=== PATIENT | male | born 1970 | race Caucasian/White ===

== ENCOUNTER → 2017-01-03 | Outpatient (CLI) | payer BC ==
[2016-02-22 11:25] VITALS: BP 119/82
[~2017-01-03] MED LIST: AMOXICILLIN 8751 TAB PO; BUPROPION ER100 M1 PO; BUPROPRION; DEPAKOTE DR500 MG PO; DEPAKOTE500 MG PO; FEXOFENADINE H180 M1 PO; FIORICET1 CAP PO; GABAPENTIN300 MG; GOOD SENSE ASP325 M1 PO; IBUPROFEN200 MG PO; IBUPROFEN800 MG PO; ISOPTIN SR120 MG PO; KETOROLAC10 MG PO; MAXALT10 M2 PO; Muscle Relaxer; OMEPRAZOLE D/R20 MG PO; OMEPRAZOLE40 MG PO; PAIN RELIEVER500 M2 PO; PERCOCET 325 MG1 TA2 PO; PREDNISONE20 M1 PO; PROVENTIL0.09 MG/A1 IH; SERTRALINE50 MG PO; SPIRIVA RE2.5 MCG/Ac IH; ZITHROMAX Z PA250 MG PO
== END ==
LOC: LAB 06:41
DX: Z00.00 Encounter for general adult medical examination without abnormal findings (principal); K21.9 Gastro-esophageal reflux disease without esophagitis; E78.5 Hyperlipidemia, unspecified; M51.36 Other intervertebral disc degeneration, lumbar region; M50.30 Other cervical disc degeneration, unspecified cervical region; Z72.0 Tobacco use; R35.1 Nocturia; N42.89 Other specified disorders of prostate

== ENCOUNTER → 2017-01-06 | Outpatient (CLI) | payer OTHER, BC ==
[~2017-01-06] VITALS: Ht 177.8 cm; Wt 81.8 kg
[2017-01-06 12:07] VITALS: BP 114/78
== END ==
LOC: AMSURD 11:45
DX: Z00.00 Encounter for general adult medical examination without abnormal findings (principal); Z72.0 Tobacco use; R35.1 Nocturia; N42.89 Other specified disorders of prostate; Z01.818 Encounter for other preprocedural examination

== ENCOUNTER → 2017-04-28 | Outpatient (CLI) | payer BC ==
[2017-01-06 12:07] VITALS: BP 114/78
[2017-04-29 00:42] LABS: FOLATE (FOLIC ACID) 4.8 ng/mL (7.0-31.4)
== END ==
LOC: LAB 14:37
PROVIDERS: Psychiatry & Neurology Neurology
DX: R20.0 Anesthesia of skin (principal); R20.2 Paresthesia of skin

== ENCOUNTER 2017-05-20 13:51 | Emergency (ER) | payer BC ==
[2017-05-20] MEDS ORDERED: LYRICA75 MG PO (14:20)
[2017-05-20] MEDS ORDERED: DULOXETINE60 MG PO (14:20)
[2017-05-20] MEDS ORDERED: CYCLOBENZAPRINE10 M1 PO (14:20)
[2017-05-20 15:24] LABS: EOS # 0.3 (0.04-0.40); EOS % 4.3 % (0.0-4.0); HEMATOCRIT 46.1 % (42.0-52.0); HEMOGLOBIN 15.7 g/dL (13.5-18.0); LYMPH# 1.7 (1.50-4.00); MEAN CELL VOLUME 86 fl (78-100); MEAN CORPUSCULAR HEMOGLOBIN 29 pg (27-31); MEAN CORPUSCULAR HGB CONC 34 g/dL (33-37); MONO # 0.5 (0.20-0.80); NEU # 4.1 (1.40-6.50); PLATELET COUNT 137 K/mm3 (130-400); RED BLOOD COUNT 5.34 M/mm3 (4.20-5.60); RED CELL DISTRIBUTION WIDTH 13.8 % (11.5-14.5); WHITE BLOOD COUNT 6.7 K/mm3 (4.8-10.8)
[2017-05-20 15:42] LABS: ALBUMIN 3.8 g/dL (3.5-5.0); CALCIUM 8.8 mg/dL (8.4-10.2); POTASSIUM 4.1 mmol/L (3.6-5.0); TOTAL BILIRUBIN 0.5 mg/dL (0.2-1.3); TOTAL PROTEIN 6.4 g/dL (6.3-8.2)
[2017-05-20] MEDS ORDERED: ZYRTEC10 M3 PO (16:27)
[2017-05-20 16:33] VITALS: BP 132/86
== END 2017-05-20 16:33 | disposition home or self-care (01) ==
LOC: ED 13:51
PROVIDERS: Physician Assistant
DX: R29.898 Other symptoms and signs involving the musculoskeletal system (principal); H92.02 Otalgia, left ear; J30.2 Other seasonal allergic rhinitis; F17.200 Nicotine dependence, unspecified, uncomplicated; I25.2 Old myocardial infarction; J44.9 Chronic obstructive pulmonary disease, unspecified; K21.9 Gastro-esophageal reflux disease without esophagitis; G43.909 Migraine, unspecified, not intractable, without status migrainosus

== ENCOUNTER → 2017-05-25 | Outpatient (CLI) | payer BC ==
[~2017-05-25] VITALS: Ht 177.8 cm; Wt 81.8 kg
[~2017-05-25] MED LIST changes: +CYCLOBENZAPRINE10 M1 PO; +DULOXETINE60 MG PO; +LYRICA75 MG PO; +ZYRTEC10 M3 PO
[2017-05-25 11:45] VITALS: BP 124/79
== END ==
LOC: AMSURD 11:39
DX: R00.0 Tachycardia, unspecified (principal)

== ENCOUNTER 2017-06-02 11:30 | Outpatient (RCR) | payer BC ==
[2017-01-06 12:07] VITALS: BP 114/78
== END 2017-06-02 12:00 | disposition home or self-care (01) ==
LOC: PT 11:30
DX: Z98.1 Arthrodesis status (principal); M62.838 Other muscle spasm; M54.42 Lumbago with sciatica, left side; M54.41 Lumbago with sciatica, right side

== ENCOUNTER → 2017-07-04 | Outpatient (CLI) | payer BC ==
[~2017-07-04] VITALS: Ht 177.8 cm; Wt 81.8 kg
[~2017-07-04] MED LIST changes: +ACETAMINOPHEN-H1 TA2 PO
[2017-07-04 15:52] VITALS: BP 130/88
== END ==
LOC: AMSURD 15:29
DX: I10 Essential (primary) hypertension (principal)

== ENCOUNTER → 2017-07-05 | Outpatient (CLI) | payer BC ==
[2017-07-04 15:52] VITALS: BP 130/88
== END ==
LOC: RAD 09:26
DX: R10.11 Right upper quadrant pain (principal); I10 Essential (primary) hypertension; K76.89 Other specified diseases of liver

== ENCOUNTER 2017-07-18 13:11 | Emergency (ER) | payer BC ==
[2017-07-18] MEDS ORDERED: OMEPRAZOLE D/R20 MG PO (13:35)
[2017-07-18] MEDS ORDERED: METOPROLOL SUCC25 M1 PO (13:35)
[2017-07-18] MEDS ORDERED: NEURONTIN300 MG/CAP (13:35)
[2017-07-18] MEDS ORDERED: KETOROLAC TROME10 MG PO (13:35)
[2017-07-18] MEDS ORDERED: DULOXETINE60 MG PO (13:36)
[2017-07-18] MEDS ORDERED: CYCLOBENZAPRINE10 M1 PO (13:37)
[2017-07-18 14:02] LABS: EOS # 0.3 (0.04-0.40); EOS % 2.5 % (0.0-4.0); HEMATOCRIT 49.9 % (42.0-52.0); HEMOGLOBIN 16.7 g/dL (13.5-18.0); MEAN CELL VOLUME 86 fl (78-100); MEAN CORPUSCULAR HEMOGLOBIN 29 pg (27-31); MEAN CORPUSCULAR HGB CONC 34 g/dL (33-37); MONO # 0.8 (0.20-0.80); NEU # 7.1 (1.40-6.50); PLATELET COUNT 173 K/mm3 (130-400); RED BLOOD COUNT 5.78 M/mm3 (4.20-5.60); RED CELL DISTRIBUTION WIDTH 14.1 % (11.5-14.5); WHITE BLOOD COUNT 10.3 K/mm3 (4.8-10.8)
[2017-07-18 14:15] LABS: ALBUMIN 4.3 g/dL (3.5-5.0); BUN/CREATININE RATIO 9.9 (6.0-26.0); CALCIUM 8.9 mg/dL (8.4-10.2); POTASSIUM 4.3 mmol/L (3.6-5.0); TOTAL BILIRUBIN 0.4 mg/dL (0.2-1.3); TOTAL PROTEIN 7.4 g/dL (6.3-8.2)
[2017-07-18 14:21] LABS: CKMB ISOENZYME 0.8 ng/mL (0.6-3.5)
[2017-07-18 14:22] LABS: MEAN PLATELET VOLUME 12.3 fl (7.4-10.4)
[2017-07-18 14:26] LABS: TROPONIN-I < 0.03 ng/mL (0.00-0.06)
[2017-07-18] MEDS ORDERED: TUSSIONEX PENN115 ML PO (15:51)
[2017-07-18] MEDS ORDERED: NORCO 325 MG-51 TA1 PO (15:51)
[2017-07-18 15:55] VITALS: BP 112/80
== END 2017-07-18 16:05 | disposition home or self-care (01) ==
LOC: ED 13:11
PROVIDERS: Nurse Practitioner Primary Care
DX: M94.0 Chondrocostal junction syndrome [Tietze] (principal); F17.200 Nicotine dependence, unspecified, uncomplicated; J06.9 Acute upper respiratory infection, unspecified; I10 Essential (primary) hypertension; I25.2 Old myocardial infarction; Z86.73 Personal history of transient ischemic attack (TIA), and cerebral infarction without residual deficits; Z88.5 Allergy status to narcotic agent; Z91.018 Allergy to other foods
CPT/HCPCS: J1885; J2270; J2405; Q9967

== ENCOUNTER 2017-07-26 15:54 | Emergency (ER) | payer BC ==
[~2017-07-26] VITALS: Ht 180.3 cm; Wt 82.3 kg
[~2017-07-26 15:54] MED LIST changes: +KETOROLAC TROME10 MG PO; +METOPROLOL SUCC25 M1 PO; +NEURONTIN300 MG/CAP; +NORCO 325 MG-51 TA1 PO; +TUSSIONEX PENN115 ML PO
[2017-07-26 17:38] LABS: BUN/CREATININE RATIO 5.9 (6.0-26.0); CALCIUM 8.9 mg/dL (8.4-10.2); POTASSIUM 4.2 mmol/L (3.6-5.0); TOTAL BILIRUBIN 0.3 mg/dL (0.2-1.3); TOTAL PROTEIN 6.9 g/dL (6.3-8.2)
[2017-07-26 17:43] LABS: EOS # 0.2 (0.04-0.40); HEMATOCRIT 46.4 % (42.0-52.0); HEMOGLOBIN 15.4 g/dL (13.5-18.0); LYMPH# 2.1 (1.50-4.00); MEAN CELL VOLUME 86 fl (78-100); MEAN CORPUSCULAR HEMOGLOBIN 28 pg (27-31); MEAN CORPUSCULAR HGB CONC 33 g/dL (33-37); MEAN PLATELET VOLUME 12.3 fl (7.4-10.4); MONO # 0.4 (0.20-0.80); NEU # 5.1 (1.40-6.50); PLATELET COUNT 164 K/mm3 (130-400); RED BLOOD COUNT 5.43 M/mm3 (4.20-5.60); WHITE BLOOD COUNT 7.9 K/mm3 (4.8-10.8)
[2017-07-26 17:55] LABS: CKMB ISOENZYME 0.9 ng/mL (0.6-3.5)
[2017-07-26 18:59] LABS: TROPONIN-I < 0.03 ng/mL (0.00-0.06)
[2017-07-26 21:27] VITALS: BP 130/94
== END 2017-07-26 21:27 | disposition home or self-care (01) ==
LOC: ED 15:54
PROVIDERS: Nurse Practitioner Family
DX: R07.89 Other chest pain (principal); R42 Dizziness and giddiness; R51 Headache; M54.2 Cervicalgia; Z91.81 History of falling; Z98.1 Arthrodesis status; F17.210 Nicotine dependence, cigarettes, uncomplicated
CPT/HCPCS: J1885; J7030

== ENCOUNTER → 2017-09-01 | Outpatient (REF) | LOC: EDSTATUS 07:11 → LAB 18:02 | DX: R55 Syncope and collapse (principal); R53.83 Other fatigue; Z88.5 Allergy status to narcotic agent ==

== ENCOUNTER 2017-09-30 13:00 | Outpatient (RCR) | payer BC | END 2017-09-30 13:30 | disposition home or self-care (01) | LOC: PT 13:00 | DX: G56.23 Lesion of ulnar nerve, bilateral upper limbs (principal); G56.02 Carpal tunnel syndrome, left upper limb; Y28.9 Contact with unspecified sharp object, undetermined intent ==

== ENCOUNTER 2017-12-12 17:08 | Emergency (ER) | payer BC ==
[~2017-12-12] VITALS: Wt 93.6 kg
[2017-12-12 17:32] LABS: EOS # 0.2 (0.04-0.40); EOS % 3.2 % (0.0-4.0); HEMATOCRIT 44.5 % (42.0-52.0); HEMOGLOBIN 14.8 g/dL (13.5-18.0); LYMPH# 1.9 (1.50-4.00); MEAN CELL VOLUME 88 fl (78-100); MEAN CORPUSCULAR HEMOGLOBIN 29 pg (27-31); MEAN CORPUSCULAR HGB CONC 33 g/dL (33-37); MONO # 0.6 (0.20-0.80); NEU # 4.5 (1.40-6.50); PLATELET COUNT 146 K/mm3 (130-400); RED BLOOD COUNT 5.08 M/mm3 (4.20-5.60); RED CELL DISTRIBUTION WIDTH 13.7 % (11.5-14.5); WHITE BLOOD COUNT 7.3 K/mm3 (4.8-10.8)
[2017-12-12] MEDS ORDERED: HYGROTON 2525 MG/TAB PO (17:41)
[2017-12-12] MEDS ORDERED: QUETIAPINE FUM300 M1 PO (17:42)
[2017-12-12] MEDS ORDERED: DEPAKOTE ER 50500 MG PO (17:43)
[2017-12-12 17:45] LABS: ALBUMIN 3.8 g/dL (3.5-5.0); BUN/CREATININE RATIO 13.4 (6.0-26.0); CALCIUM 8.7 mg/dL (8.4-10.2); POTASSIUM 3.4 mmol/L (3.6-5.0); TOTAL BILIRUBIN 0.4 mg/dL (0.2-1.3); TOTAL PROTEIN 6.9 g/dL (6.3-8.2)
[2017-12-12 17:52] LABS: CKMB ISOENZYME 0.9 ng/mL (0.6-3.5)
[2017-12-12 17:57] LABS: TROPONIN-I < 0.03 ng/mL (0.00-0.06)
[2017-12-12 18:07] LABS: D-DIMER 0.23 mg/L FEU (0.15-0.50)
[2017-12-12 20:06] LABS: CKMB ISOENZYME 0.9 ng/mL (0.6-3.5)
[2017-12-12 20:10] LABS: TROPONIN-I < 0.03 ng/mL (0.00-0.06)
[2017-12-12 20:42] VITALS: BP 116/80
== END 2017-12-12 20:42 | disposition home or self-care (01) ==
LOC: ED 17:08
PROVIDERS: Nurse Practitioner Primary Care
DX: I25.118 Atherosclerotic heart disease of native coronary artery with other forms of angina pectoris (principal); I10 Essential (primary) hypertension; E78.5 Hyperlipidemia, unspecified; K21.9 Gastro-esophageal reflux disease without esophagitis; I25.2 Old myocardial infarction; Z86.73 Personal history of transient ischemic attack (TIA), and cerebral infarction without residual deficits; K80.20 Calculus of gallbladder without cholecystitis without obstruction; Z79.899 Other long term (current) drug therapy; F17.200 Nicotine dependence, unspecified, uncomplicated
CPT/HCPCS: J2270

== ENCOUNTER → 2018-02-02 | Outpatient (CLI) | payer BC ==
[~2018-02-02] MED LIST changes: +DEPAKOTE ER 50500 MG PO; +HYGROTON 2525 MG/TAB PO; +QUETIAPINE FUM300 M1 PO
== END ==
LOC: RAD 12:36
DX: M25.561 Pain in right knee (principal)

== ENCOUNTER 2018-03-16 09:30 | Outpatient (RCR) | payer BC | END 2018-03-16 10:00 | disposition home or self-care (01) | LOC: PT 09:30 | DX: M25.561 Pain in right knee (principal); R22.41 Localized swelling, mass and lump, right lower limb ==

== ENCOUNTER → 2018-03-17 | Outpatient (CLI) | payer BC ==
[~2018-03-17] MED LIST changes: +ATORVASTATIN CA20 MG PO; +CYMBALTA30 M1 PO; +HYDROCHLOROTH12.5 M2 PO; +ISOSORBIDE MONO60 M2 PO; +KAPSPARGO SPRI100 MG PO; +POTASSIUM CHLO20 ME4 PO; +XARELTO20 MG PO; +[UNRECOGNIZED DRUG - OTHER] NS
== END ==
LOC: RAD 11:20
DX: R22.1 Localized swelling, mass and lump, neck (principal); Z98.890 Other specified postprocedural states
CPT/HCPCS: Q9967

== ENCOUNTER 2018-03-18 11:08 | Emergency (ER) | payer BC ==
[~2018-03-18] VITALS: Ht 177.8 cm; Wt 92.7 kg
[~2018-03-18 11:08] MED LIST changes: -ATORVASTATIN CA20 MG PO; -CYMBALTA30 M1 PO; -HYDROCHLOROTH12.5 M2 PO; -ISOSORBIDE MONO60 M2 PO; -KAPSPARGO SPRI100 MG PO; -POTASSIUM CHLO20 ME4 PO; -XARELTO20 MG PO; -[UNRECOGNIZED DRUG - OTHER] NS
[2018-03-18] MEDS ORDERED: XARELTO20 MG PO (11:18)
[2018-03-18 12:05] LABS: EOS # 0.2 (0.04-0.40); EOS % 3.3 % (0.0-4.0); HEMATOCRIT 40.7 % (42.0-52.0); HEMOGLOBIN 13.5 g/dL (13.5-18.0); LYMPH# 1.9 (1.50-4.00); MEAN CELL VOLUME 88 fl (78-100); MEAN CORPUSCULAR HEMOGLOBIN 29 pg (27-31); MEAN CORPUSCULAR HGB CONC 33 g/dL (33-37); MEAN PLATELET VOLUME 11.7 fl (7.4-10.4); MONO # 0.5 (0.20-0.80); NEU # 3.7 (1.40-6.50); PLATELET COUNT 124 K/mm3 (130-400); RED BLOOD COUNT 4.62 M/mm3 (4.20-5.60); RED CELL DISTRIBUTION WIDTH 13.8 % (11.5-14.5); WHITE BLOOD COUNT 6.3 K/mm3 (4.8-10.8)
[2018-03-18 12:20] LABS: ALBUMIN 3.7 g/dL (3.5-5.0); CALCIUM 8.7 mg/dL (8.4-10.2); TOTAL BILIRUBIN 0.7 mg/dL (0.2-1.3); TOTAL PROTEIN 6.3 g/dL (6.3-8.2)
[2018-03-18 12:27] LABS: PARTIAL THROMBOPLASTIN TIME 29.3 SECONDS (21.0-32.0); PROTHROMBIN TIME 11.2 SECONDS (9.0-12.0)
[2018-03-18] MEDS ORDERED: NEURONTIN300 MG/CAP (13:02)
[2018-03-18] MEDS ORDERED: ISOSORBIDE MONO60 M2 PO (13:03)
[2018-03-18] MEDS ORDERED: HYDROCHLOROTH12.5 M2 PO (13:03)
[2018-03-18] MEDS ORDERED: KAPSPARGO SPRI100 MG PO (13:04)
[2018-03-18] MEDS ORDERED: POTASSIUM CHLO20 ME4 PO (13:05)
[2018-03-18] MEDS ORDERED: CYMBALTA30 M1 PO (13:06)
[2018-03-18] MEDS ORDERED: ATORVASTATIN CA20 MG PO (13:06)
[2018-03-18] MEDS ORDERED: [UNRECOGNIZED DRUG - OTHER] NS (13:08)
[2018-03-18 15:32] VITALS: BP 111/74
== END 2018-03-18 15:32 | disposition home or self-care (01) ==
LOC: ED 11:08
PROVIDERS: Family Medicine
DX: R51 Headache (principal); R07.9 Chest pain, unspecified; R29.898 Other symptoms and signs involving the musculoskeletal system; M50.30 Other cervical disc degeneration, unspecified cervical region; J43.9 Emphysema, unspecified; F17.210 Nicotine dependence, cigarettes, uncomplicated; Z79.01 Long term (current) use of anticoagulants; I48.91 Unspecified atrial fibrillation; I25.10 Atherosclerotic heart disease of native coronary artery without angina pectoris; I50.9 Heart failure, unspecified; G40.909 Epilepsy, unspecified, not intractable, without status epilepticus; R40.2412 Glasgow coma scale score 13-15, at arrival to emergency department; Z79.899 Other long term (current) drug therapy
CPT/HCPCS: J0595

== ENCOUNTER → 2018-03-20 | Outpatient (CLI) | payer BC ==
[2018-03-18 15:32] VITALS: BP 111/74
[~2018-03-20] MED LIST changes: +ATORVASTATIN CA20 MG PO; +CYMBALTA30 M1 PO; +HYDROCHLOROTH12.5 M2 PO; +ISOSORBIDE MONO60 M2 PO; +KAPSPARGO SPRI100 MG PO; +POTASSIUM CHLO20 ME4 PO; +XARELTO20 MG PO; +[UNRECOGNIZED DRUG - OTHER] NS
== END ==
LOC: RAD 13:16
DX: M17.11 Unilateral primary osteoarthritis, right knee (principal); M25.461 Effusion, right knee

== ENCOUNTER 2018-03-24 14:22 | Emergency (ER) | payer BC ==
[~2018-03-24] VITALS: Ht 177.8 cm; Wt 94.5 kg
[2018-03-24 15:43] LABS: EOS # 0.2 (0.04-0.40); EOS % 3.1 % (0.0-4.0); HEMOGLOBIN 13.3 g/dL (13.5-18.0); LYMPH# 1.5 (1.50-4.00); MEAN CELL VOLUME 88 fl (78-100); MEAN CORPUSCULAR HEMOGLOBIN 29 pg (27-31); MEAN CORPUSCULAR HGB CONC 32 g/dL (33-37); MEAN PLATELET VOLUME 11.8 fl (7.4-10.4); MONO # 0.4 (0.20-0.80); NEU # 3.1 (1.40-6.50); PLATELET COUNT 158 K/mm3 (130-400); RED BLOOD COUNT 4.65 M/mm3 (4.20-5.60); RED CELL DISTRIBUTION WIDTH 14.1 % (11.5-14.5); WHITE BLOOD COUNT 5.2 K/mm3 (4.8-10.8)
[2018-03-24 15:54] LABS: ALBUMIN 3.6 g/dL (3.5-5.0); CALCIUM 8.6 mg/dL (8.4-10.2); POTASSIUM 4.1 mmol/L (3.6-5.0); TOTAL BILIRUBIN 0.6 mg/dL (0.2-1.3); TOTAL PROTEIN 6.1 g/dL (6.3-8.2)
[2018-03-24 17:01] VITALS: BP 112/77
== END 2018-03-24 17:03 | disposition home or self-care (01) ==
LOC: ED 14:22
PROVIDERS: Nurse Practitioner Primary Care
DX: G43.909 Migraine, unspecified, not intractable, without status migrainosus (principal); I48.91 Unspecified atrial fibrillation; I47.1 Supraventricular tachycardia; F17.210 Nicotine dependence, cigarettes, uncomplicated; Z79.01 Long term (current) use of anticoagulants; Z79.899 Other long term (current) drug therapy

== ENCOUNTER 2018-05-07 12:31 | Emergency (ER) | payer BC ==
[~2018-05-07] VITALS: Ht 177.8 cm; Wt 99.1 kg
[2018-05-07] MEDS ORDERED: TRAMADOL 50 MG TAB PO (12:41)
[2018-05-07] MEDS ORDERED: PROCHLORPERAZIN10 M2 (12:42)
[2018-05-07] MEDS ORDERED: ONDANSETRON HYDR4 MG PO (12:43)
[2018-05-07] MEDS ORDERED: METOPROLOL SUC100 M1 PO (12:44)
[2018-05-07] MEDS ORDERED: ACETAMINOPHEN-O1 TAB PO (12:44)
[2018-05-07 13:13] LABS: EOS # 0.2 (0.04-0.40); HEMATOCRIT 38.6 % (42.0-52.0); LYMPH# 1.5 (1.50-4.00); MEAN CELL VOLUME 87 fl (78-100); MEAN CORPUSCULAR HEMOGLOBIN 29 pg (27-31); MEAN CORPUSCULAR HGB CONC 34 g/dL (33-37); MEAN PLATELET VOLUME 10.9 fl (7.4-10.4); MONO # 0.5 (0.20-0.80); NEU # 2.5 (1.40-6.50); PLATELET COUNT 151 K/mm3 (130-400); RED BLOOD COUNT 4.42 M/mm3 (4.20-5.60); RED CELL DISTRIBUTION WIDTH 13.9 % (11.5-14.5); WHITE BLOOD COUNT 4.7 K/mm3 (4.8-10.8)
[2018-05-07 13:27] VITALS: BP 105/77
[2018-05-07 14:13] LABS: ERYTHROCYTE SEDIMENTATION RATE 7 mm/hr (0-15)
== END 2018-05-07 13:27 | disposition home or self-care (01) ==
LOC: ED 12:31
PROVIDERS: Family Medicine
DX: M25.571 Pain in right ankle and joints of right foot (principal); M96.89 Other intraoperative and postprocedural complications and disorders of the musculoskeletal system; S90.01XA Contusion of right ankle, initial encounter; R60.0 Localized edema; Z79.01 Long term (current) use of anticoagulants; I25.10 Atherosclerotic heart disease of native coronary artery without angina pectoris; I25.2 Old myocardial infarction; J44.9 Chronic obstructive pulmonary disease, unspecified; F17.200 Nicotine dependence, unspecified, uncomplicated; L53.9 Erythematous condition, unspecified; Z79.899 Other long term (current) drug therapy

== ENCOUNTER → 2018-05-17 | Outpatient (CLI) | payer BC ==
[2018-05-07 13:27] VITALS: BP 105/77
[~2018-05-17] MED LIST changes: +ACETAMINOPHEN-O1 TAB PO; +METOPROLOL SUC100 M1 PO; +ONDANSETRON HYDR4 MG PO; +PROCHLORPERAZIN10 M2; +TRAMADOL 50 MG TAB PO
== END ==
LOC: RAD 15:58
DX: R10.9 Unspecified abdominal pain (principal); K59.00 Constipation, unspecified; Z98.890 Other specified postprocedural states; Z96.7 Presence of other bone and tendon implants

== ENCOUNTER 2018-06-07 10:30 | Outpatient (RCR) | payer BC | END 2018-07-30 | disposition home or self-care (01) | LOC: PT | DX: Z47.89 Encounter for other orthopedic aftercare (principal) ==

== ENCOUNTER → 2018-08-17 | Outpatient (CLI) | payer BC | LOC: RAD 09:11 | DX: R29.898 Other symptoms and signs involving the musculoskeletal system (principal) | CPT/HCPCS: Q9967 ==

== ENCOUNTER → 2018-09-04 | Outpatient (CLI) | payer BC | LOC: RAD 12:54 | DX: R29.898 Other symptoms and signs involving the musculoskeletal system (principal); R20.2 Paresthesia of skin; Z98.890 Other specified postprocedural states | CPT/HCPCS: A9585 ==

== ENCOUNTER → 2018-09-13 | Outpatient (CLI) | payer BC | LOC: RAD 09:51 | DX: M51.36 Other intervertebral disc degeneration, lumbar region (principal) ==

== ENCOUNTER → 2018-09-18 | Outpatient (CLI) | payer BC | LOC: RAD 12:00 | DX: M48.061 Spinal stenosis, lumbar region without neurogenic claudication (principal); M51.36 Other intervertebral disc degeneration, lumbar region; M47.817 Spondylosis without myelopathy or radiculopathy, lumbosacral region ==

== ENCOUNTER → 2018-10-16 | Outpatient (CLI) | payer BC | LOC: LAB 12:50 | DX: G47.9 Sleep disorder, unspecified (principal) ==

== ENCOUNTER → 2018-11-15 | Outpatient (CLI) | payer BC ==
[2018-11-15 10:52] LABS: ALBUMIN 4.1 g/dL (3.5-5.0); DIRECT BILIRUBIN 0.2 mg/dL (0.0-0.5); TOTAL BILIRUBIN 0.4 mg/dL (0.2-1.2); TOTAL PROTEIN 7.1 g/dL (6.4-8.3)
== END ==
LOC: LAB 10:01
PROVIDERS: Family Medicine
DX: K21.9 Gastro-esophageal reflux disease without esophagitis (principal); M51.36 Other intervertebral disc degeneration, lumbar region; I10 Essential (primary) hypertension; Z72.0 Tobacco use

== ENCOUNTER → 2018-11-16 | Outpatient (CLI) | payer BC | LOC: RAD 07:30 | DX: M51.36 Other intervertebral disc degeneration, lumbar region (principal); I10 Essential (primary) hypertension; K21.9 Gastro-esophageal reflux disease without esophagitis; Z72.0 Tobacco use ==

== ENCOUNTER 2018-11-30 11:00 | Outpatient (RCR) | payer BC | END 2018-11-30 11:30 | LOC: PT 11:00 | DX: M51.36 Other intervertebral disc degeneration, lumbar region (principal) ==

== ENCOUNTER → 2019-01-26 | Outpatient (CLI) | payer BC | LOC: RAD 08:46 | DX: K21.9 Gastro-esophageal reflux disease without esophagitis (principal); K59.04 Chronic idiopathic constipation ==

== ENCOUNTER 2019-02-01 16:34 | Emergency (ER) | payer BC ==
[~2019-02-01] VITALS: Ht 177.8 cm; Wt 90.0 kg
[~2019-02-01 16:34] MED LIST changes: -ACID REDUCER 1150 MG PO; -LINZESS145 MCG PO; -MELOXICAM15 MG PO; -PANTOPRAZOLE SO20 M1 PO; -WELLBUTRIN SR100 M3 PO
[2019-02-01] MEDS ORDERED: ACID REDUCER 1150 MG PO (16:44)
[2019-02-01] MEDS ORDERED: PANTOPRAZOLE SO20 M1 PO (16:45)
[2019-02-01] MEDS ORDERED: MELOXICAM15 MG PO (16:45)
[2019-02-01] MEDS ORDERED: WELLBUTRIN SR100 M3 PO (16:45)
[2019-02-01] MEDS ORDERED: LINZESS145 MCG PO (16:45)
[2019-02-01 17:09] LABS: ALBUMIN 4.2 g/dL (3.5-5.0)
[2019-02-01 17:10] LABS: POTASSIUM 3.7 mmol/L (3.5-5.1)
[2019-02-01 17:11] LABS: CALCIUM 9.1 mg/dL (8.3-10.5)
[2019-02-01 17:12] LABS: TOTAL PROTEIN 7.5 g/dL (6.4-8.3)
[2019-02-01 17:19] LABS: EOS # 0.2 (0.04-0.40); EOS % 2.2 % (0.0-4.0); HEMOGLOBIN 15.8 g/dL (13.5-18.0); LYMPH# 2.3 (1.50-4.00); MEAN CELL VOLUME 83 fl (78-100); MEAN CORPUSCULAR HEMOGLOBIN 28 pg (27-31); MEAN CORPUSCULAR HGB CONC 34 g/dL (33-37); MONO # 0.5 (0.20-0.80); NEU # 5.4 (1.40-6.50); PLATELET COUNT 146 K/mm3 (130-400); RED BLOOD COUNT 5.66 M/mm3 (4.20-5.60); RED CELL DISTRIBUTION WIDTH 14.9 % (11.5-14.5); WHITE BLOOD COUNT 8.3 K/mm3 (4.8-10.8)
[2019-02-01 17:25] LABS: TROPONIN-I 0.03 ng/mL (<0.030)
[2019-02-01 17:28] LABS: MEAN PLATELET VOLUME 12.9 fl (7.4-10.4)
[2019-02-01 17:42] LABS: TOTAL BILIRUBIN 0.6 mg/dL (0.2-1.2)
[2019-02-01 19:28] VITALS: BP 114/70
== END 2019-02-01 19:28 | disposition home or self-care (01) ==
LOC: ED 16:34
PROVIDERS: Nurse Practitioner Family
DX: R07.89 Other chest pain (principal); I10 Essential (primary) hypertension; K21.9 Gastro-esophageal reflux disease without esophagitis; G43.909 Migraine, unspecified, not intractable, without status migrainosus; F32.9 Major depressive disorder, single episode, unspecified; F17.210 Nicotine dependence, cigarettes, uncomplicated; Z95.9 Presence of cardiac and vascular implant and graft, unspecified; Z98.890 Other specified postprocedural states; Z87.442 Personal history of urinary calculi
CPT/HCPCS: J2405; J7030

== ENCOUNTER → 2019-02-01 | Outpatient (CLI) | payer BC ==
[~2019-02-01] VITALS: Ht 177.8 cm; Wt 90.9 kg
[~2019-02-01] MED LIST changes: +ACID REDUCER 1150 MG PO; +LINZESS145 MCG PO; +MELOXICAM15 MG PO; +PANTOPRAZOLE SO20 M1 PO; +WELLBUTRIN SR100 M3 PO
[2019-02-01 18:15] VITALS: BP 115/82
== END ==
LOC: AMSURD 14:54
DX: I48.91 Unspecified atrial fibrillation (principal); R53.83 Other fatigue; R11.2 Nausea with vomiting, unspecified; R10.13 Epigastric pain

== ENCOUNTER → 2019-03-29 | Outpatient (CLI) | payer BC ==
[~2019-03-29] MED LIST changes: +ACID REDUCER 1150 MG PO; +LINZESS145 MCG PO; +MELOXICAM15 MG PO; +PANTOPRAZOLE SO20 M1 PO; +WELLBUTRIN SR100 M3 PO
== END ==
LOC: RAD 11:25
DX: K76.89 Other specified diseases of liver (principal); E11.9 Type 2 diabetes mellitus without complications; K21.9 Gastro-esophageal reflux disease without esophagitis; K92.1 Melena
CPT/HCPCS: Q9967

== ENCOUNTER 2019-04-03 11:30 | Outpatient (RCR) | payer BC | END 2019-04-03 12:00 | disposition still patient (30) | LOC: PT 11:30 | DX: M54.12 Radiculopathy, cervical region (principal) ==

== ENCOUNTER → 2019-04-16 | Day surgery (SDC) | payer BC | LOC: MSO 07:48 | DX: Z86.010 Personal history of colon polyps (principal); K29.80 Duodenitis without bleeding; D12.0 Benign neoplasm of cecum; D12.4 Benign neoplasm of descending colon; Z87.11 Personal history of peptic ulcer disease; I51.9 Heart disease, unspecified; Z79.01 Long term (current) use of anticoagulants; Z88.9 Allergy status to unspecified drugs, medicaments and biological substances; Z79.899 Other long term (current) drug therapy; E78.5 Hyperlipidemia, unspecified; G43.909 Migraine, unspecified, not intractable, without status migrainosus; K21.9 Gastro-esophageal reflux disease without esophagitis; J44.9 Chronic obstructive pulmonary disease, unspecified; I48.91 Unspecified atrial fibrillation; R09.02 Hypoxemia; M54.12 Radiculopathy, cervical region; R06.83 Snoring; R60.9 Edema, unspecified; F51.02 Adjustment insomnia; Z80.8 Family history of malignant neoplasm of other organs or systems; Z83.3 Family history of diabetes mellitus; Z82.49 Family history of ischemic heart disease and other diseases of the circulatory system; F17.210 Nicotine dependence, cigarettes, uncomplicated; E11.9 Type 2 diabetes mellitus without complications; M19.90 Unspecified osteoarthritis, unspecified site; K59.04 Chronic idiopathic constipation; M51.36 Other intervertebral disc degeneration, lumbar region; Z98.52 Vasectomy status | CPT/HCPCS: 00813; J2704; J3010; J7030 ==

== ENCOUNTER → 2019-05-08 | Outpatient (CLI) | payer BC ==
[~2019-05-08] MED LIST changes: +ALLEGRA ALLERG180 MG PO; +AMLODIPINE BES2.5 MG PO; +COLACE100 M1 PO; +HCTZ 25MG25 MG PO; -HYDROCHLOROTH12.5 M2 PO; +IPRATROPIUM BROM3 M1 IH; +MELATIN 3 MG-11 TAB PO; -METOPROLOL SUC100 M1 PO; +METOPROLOL SUCC50 M1 PO; +NITROSTAT0.4 M1 SL; +PROAIR HFA0.09 MG/AC IH
== END ==
LOC: RAD 08:07
DX: M25.561 Pain in right knee (principal)

== ENCOUNTER 2019-05-09 17:54 | Emergency (ER) | payer BC ==
[~2019-05-09] VITALS: Wt 90.6 kg
[~2019-05-09 17:54] MED LIST changes: -ALLEGRA ALLERG180 MG PO; -AMLODIPINE BES2.5 MG PO; -COLACE100 M1 PO; -IPRATROPIUM BROM3 M1 IH; -MELATIN 3 MG-11 TAB PO; -NITROSTAT0.4 M1 SL; -PROAIR HFA0.09 MG/AC IH
[2019-05-09 18:41] LABS: HEMATOCRIT 46.6 % (42.0-52.0); HEMOGLOBIN 15.5 g/dL (13.5-18.0); MEAN CELL VOLUME 86 fl (78-100); MEAN CORPUSCULAR HEMOGLOBIN 29 pg (27-31); MEAN CORPUSCULAR HGB CONC 33 g/dL (33-37); PLATELET COUNT 167 K/mm3 (130-400); RED BLOOD COUNT 5.42 M/mm3 (4.20-5.60); RED CELL DISTRIBUTION WIDTH 13.8 % (11.5-14.5); WHITE BLOOD COUNT 8.1 K/mm3 (4.8-10.8)
[2019-05-09 18:42] LABS: MEAN PLATELET VOLUME 12.4 fl (7.4-10.4)
[2019-05-09 18:49] LABS: ALBUMIN 4.2 g/dL (3.5-5.0); POTASSIUM 4.1 mmol/L (3.5-5.1)
[2019-05-09 18:50] LABS: CALCIUM 9.1 mg/dL (8.3-10.5)
[2019-05-09 18:53] LABS: TOTAL BILIRUBIN 0.6 mg/dL (0.2-1.2)
[2019-05-09 18:56] LABS: BAND 3 % (0-10); LYMPHOCYTE 4 % (20-51); NEUTROPHILS 91 % (42-75)
[2019-05-09] MEDS ORDERED: AMLODIPINE BES2.5 MG PO (20:40)
[2019-05-09 20:41] LABS: URINE APPEARANCE CLEAR; URINE COLOR YELLOW
[2019-05-09 20:42] LABS: PH-URINE 6.5 (5.0 - 8.0); URINE BILIRUBIN NEGATIVE (NEGATIVE); URINE BLOOD TRACE (NEGATIVE); URINE GLUCOSE NEGATIVE (NEGATIVE); URINE KETONE NEGATIVE (NEGATIVE); URINE LEUKOCYTE ESTERASE NEGATIVE (NEGATIVE); URINE NITRATE NEGATIVE (NEGATIVE); URINE PROTEIN(semi-quant) TRACE mg/dL (NEGATIVE); URINE UROBILINOGEN NORMAL (NORMAL)
[2019-05-09] MEDS ORDERED: IPRATROPIUM BROM3 M1 IH (20:43)
[2019-05-09] MEDS ORDERED: ALLEGRA ALLERG180 MG PO (20:43)
[2019-05-09] MEDS ORDERED: MELATIN 3 MG-11 TAB PO (20:44)
[2019-05-09] MEDS ORDERED: PROAIR HFA0.09 MG/AC IH (20:44)
[2019-05-09] MEDS ORDERED: COLACE100 M1 PO (20:45)
[2019-05-09] MEDS ORDERED: NITROSTAT0.4 M1 SL (20:45)
[2019-05-09 21:26] VITALS: BP 115/77
== END 2019-05-09 21:26 | disposition home or self-care (01) ==
LOC: ED 17:54
PROVIDERS: Physician Assistant
DX: E11.65 Type 2 diabetes mellitus with hyperglycemia (principal); I48.91 Unspecified atrial fibrillation; F17.210 Nicotine dependence, cigarettes, uncomplicated; Z86.73 Personal history of transient ischemic attack (TIA), and cerebral infarction without residual deficits; Z88.8 Allergy status to other drugs, medicaments and biological substances
CPT/HCPCS: J7030

== ENCOUNTER 2019-12-23 09:07 | Emergency (ER) | payer BC ==
[~2019-12-23] VITALS: Ht 177.8 cm; Wt 90.0 kg
[~2019-12-23 09:07] MED LIST changes: +ALLEGRA ALLERG180 MG PO; +AMLODIPINE BES2.5 MG PO; +COLACE100 M1 PO; +IPRATROPIUM BROM3 M1 IH; +MELATIN 3 MG-11 TAB PO; +NITROSTAT0.4 M1 SL; +PROAIR HFA0.09 MG/AC IH
[2019-12-23 09:47] LABS: EOS # 0.2 (0.04-0.40); EOS % 3.6 % (0.0-4.0); HEMATOCRIT 47.1 % (42.0-52.0); HEMOGLOBIN 15.9 g/dL (13.5-18.0); LYMPH# 1.8 (1.50-4.00); MEAN CELL VOLUME 85 fl (78-100); MEAN CORPUSCULAR HEMOGLOBIN 29 pg (27-31); MEAN CORPUSCULAR HGB CONC 34 g/dL (33-37); MEAN PLATELET VOLUME 11.9 fl (7.4-10.4); MONO # 0.4 (0.20-0.80); NEU # 3.8 (1.40-6.50); PLATELET COUNT 157 K/mm3 (130-400); RED BLOOD COUNT 5.52 M/mm3 (4.20-5.60); RED CELL DISTRIBUTION WIDTH 14.4 % (11.5-14.5); WHITE BLOOD COUNT 6.3 K/mm3 (4.8-10.8)
[2019-12-23] MEDS ORDERED: GLUCOPHAGE PO (09:56)
[2019-12-23 09:59] LABS: ALBUMIN 4.1 g/dL (3.5-5.0); POTASSIUM 3.8 mmol/L (3.5-5.1)
[2019-12-23 10:00] LABS: CALCIUM 8.5 mg/dL (8.3-10.5)
[2019-12-23 10:03] LABS: TOTAL BILIRUBIN 0.5 mg/dL (0.2-1.2)
[2019-12-23 10:14] LABS: TROPONIN-I 0.04 ng/mL (<0.030)
[2019-12-23 12:00] VITALS: BP 108/78
== END 2019-12-23 12:11 | disposition short-term general hospital (02) ==
LOC: ED 09:07
PROVIDERS: Family Medicine
DX: I24.9 Acute ischemic heart disease, unspecified (principal); I10 Essential (primary) hypertension; E11.9 Type 2 diabetes mellitus without complications; I48.91 Unspecified atrial fibrillation; E78.5 Hyperlipidemia, unspecified; J44.9 Chronic obstructive pulmonary disease, unspecified; F17.210 Nicotine dependence, cigarettes, uncomplicated; Z79.01 Long term (current) use of anticoagulants; Z79.84 Long term (current) use of oral hypoglycemic drugs
CPT/HCPCS: J1644; J2270; J7030

== ENCOUNTER → 2020-01-01 | Outpatient (CLI) | payer BC ==
[2019-12-23 12:00] VITALS: BP 108/78
[~2020-01-01] MED LIST changes: +GLUCOPHAGE PO
== END ==
LOC: RAD 09:35
DX: M51.34 Other intervertebral disc degeneration, thoracic region (principal); I21.4 Non-ST elevation (NSTEMI) myocardial infarction; E11.43 Type 2 diabetes mellitus with diabetic autonomic (poly)neuropathy; Z72.0 Tobacco use; R29.898 Other symptoms and signs involving the musculoskeletal system; B08.1 Molluscum contagiosum